=== PATIENT | male | born 1975 | race Caucasian/White ===

== ENCOUNTER 2017-08-24 10:16 | Emergency (ER) | payer BC ==
[~2017-08-24] VITALS: Ht 185.4 cm; Wt 108.9 kg
[~2017-08-24 10:16] MED LIST: BYSTOLIC10 MG PO; DEPO-TESTO100 MG/1 M IM; METFORMIN HCL500 MG PO; PRILOSEC20 MG PO; VITAMIN D5000 UNIT PO
[2017-08-24] MEDS ORDERED: METOPROLOL SUCC50 MG PO (10:52)
[2017-08-24] MEDS ORDERED: TAMSULOSIN HCL0.4 MG PO (10:52)
[2017-08-24] MEDS ORDERED: PANTOPRAZOLE SO40 MG PO (10:52)
[2017-08-24] MEDS ORDERED: KETOROLAC TROME10 MG PO (10:53)
[2017-08-24] MEDS ORDERED: ZOFRAN4 MG PO (13:56)
[2017-08-24] MEDS ORDERED: OXYCODONE HCL5 MG PO (13:56)
== END 2017-08-24 15:09 | disposition home or self-care (01) ==
LOC: ED 10:16
DX: N13.2 Hydronephrosis with renal and ureteral calculous obstruction (principal); I10 Essential (primary) hypertension; E11.9 Type 2 diabetes mellitus without complications; Z88.0 Allergy status to penicillin; Z88.2 Allergy status to sulfonamides; Z88.1 Allergy status to other antibiotic agents; Z79.84 Long term (current) use of oral hypoglycemic drugs; Z79.899 Other long term (current) drug therapy; Z87.442 Personal history of urinary calculi
CPT/HCPCS: 74176; 80053; 81001; 83690; 85025; 96361; 96374; 96375; 96376; 99284; J1170; J1885; J2405; J7030

== ENCOUNTER 2020-02-24 06:59 | Day surgery (SDC) | payer BC ==
[~2020-02-24] VITALS: Ht 185.4 cm; Wt 119.8 kg
[~2020-02-24 06:59] MED LIST changes: +KETOROLAC TROME10 MG PO; +METOPROLOL SUCC50 MG PO; +OMEPRAZOLE20 MG PO; +OXYCODONE HCL5 MG PO; +PANTOPRAZOLE SO40 MG PO; +TAMSULOSIN HCL0.4 MG PO; +WELLBUTRIN SR100 MG; +ZOFRAN4 MG PO
--- NOTE | 2020-02-24 08:17 | NUR ---
02/24/20 0817 Becky Roa 0808- PT TO PACU IN LL POSITIONS. AWAKENS TO VOICE, FOLLOWS COMMANDS AND QUICKLY FALLS BACK TO SLEEP. PT ENCOURAGED TO TAKE DEEP BREATHS AND PASS GAS. SP02 >95% ON 3 L O2 VIA NC. ETCO2 45 0816- PT PASSING GAS. BREATHING EASY AND UNLABORED SPO2 >95% ON 3 L O2 VIA NC. DENIES PAIN AND NAUSEA.
--- NOTE | 2020-02-25 08:56 | OR ---
[facility] [address] [place], [place] [address] Signed DATE OF OPERATION: 02/24/2020 SURGEON: Lexi Newby MD PREOPERATIVE DIAGNOSES: 1. Personal history of colonic polyps, age 38. 2. Internal hemorrhoids. 3. Father with colonic polyps in his 50s. 4. Paternal aunt with colonic polyps in her 50s. POSTOPERATIVE DIAGNOSES: 1. A 5 mm polyp at 50 cm. 2. A 3 mm polypoid lesion at 35 cm. 3. A 3 mm polypoid lesion at 15 cm. 4. Minimal internal hemorrhoids with associated skin tags. PROCEDURE: Colonoscopy with hot biopsy. ESTIMATED BLOOD LOSS: None. INDICATIONS: Jefe is a 44-year-old gentleman who presents for a followup colonoscopy. At age 38, he came for both upper and lower endoscopy in 2013. We found at that time he had a 5 mm polyp in his right colon and 10 mm pedunculated polyp at 25 cm. He is known to have small internal hemorrhoids as well. His father and paternal aunt both had colonic polyps removed in the early 50s. In the meantime, he said he is doing well. He has no lower GI complaints. I gave him a pamphlet on colonoscopy and we reviewed the nature of the test along with the risks including, but not limited to gas bloating, crampy abdominal pain, bleeding, perforation requiring surgery, and missed diagnosis. We also discussed the need for IV conscious sedation. He had expressed understanding and wished to proceed. DESCRIPTION OF PROCEDURE: Jefe was taken into our endoscopy suite and placed in the left lateral decubitus position. He was given IV sedation with 7 mg of Versed and 125 mcg of fentanyl. A digital rectal exam was performed. He is starting to get some induration and enlargement of the prostate. The adult colonoscope was introduced and advanced all around into the cecum under direct visualization of camera without difficulty. His prep Electronically Signed By: LEXI NEWBY MD 02/25/20 0856 PATIENT NAME: JEFE BONILLA OPERATIVE REPORT DATE OF : 71 REPORT #: [id number] PHYSICIAN: LEXI NEWBY MD PCP: KRYSTLE KIMBALL PA-C REPORT IS CONFIDENTIAL AND NOT TO BE RELEASED WITHOUT AUTHORIZATION [facility] [address] [place] [id number] Signed was quite excellent. We could easily see the appendiceal orifice and the ileocecal valve. His prep was quite good. The scope was slowly withdrawn. The above-mentioned polyps were easily removed with the help of hot biopsy forceps. Upon retroflexion of scope once again, he has very small internal hemorrhoid columns with several tiny internal anal skin tags. After this, the gas was suctioned out and the colonoscope removed. Jefe tolerated the procedure quite well. RECOMMENDATIONS: I will see Jefe back in my office in 7 to 14 days to review his results. I suspect he will stay on the 5-year rotation. Lexi Newby MD ALB/RAMOL /[id number] cc: EMBER Dailey MD Copies: KRYSTLE KIMBALL PA-C, ANDREW L MD ~ Electronically Signed By: LEXI NEWBY MD 02/25/20 0856 PATIENT NAME: JEFE BONILLA JESSICA OPERATIVE REPORT DATE OF : 71 REPORT #: [id number] PHYSICIAN: LEXI NEWBY MD PCP: KRYSTLE KIMBALL PA-C REPORT IS CONFIDENTIAL AND NOT TO BE RELEASED WITHOUT AUTHORIZATION
--- NOTE | 2020-02-25 18:21 | PATH ---
[facility] [address] [facility], [place] [address] Signed SPECIMEN(S): A COLON POLYP AT 50 CM SPECIMEN(S): B COLON POLYP AT 35 CM SPECIMEN(S): C COLON POLYP AT 15 CM SPECIMEN SOURCE: A. COLON POLYP AT 50 CM B. COLON POLYP AT 35 CM C. COLON POLYP AT 15 CM CLINICAL HISTORY: Colonoscopy. History of polyps, family history of polyps, colon polyps, internal hemorrhoids. MICROSCOPIC DESCRIPTION: Histologic sections of all submitted blocks are examined by light microscopy. These findings, together with the gross examination, support the pathologic diagnosis. FINAL PATHOLOGIC DIAGNOSIS: A. Colon, polyp at 50 cm, polypectomy: - Tubular adenoma. - Negative for high-grade dysplasia or malignancy. B. Colon, polyp at 35 cm, polypectomy: - Severely cauterized colonic mucosa. - Negative for high-grade dysplasia or malignancy. C. Colon, polyp at 15 cm, polypectomy: - Hyperplastic polyp. - Negative for dysplasia or malignancy. COMMENT: Regarding specimen C: Severe cautery artifact is present, precluding definitive evaluation for low-grade dysplasia. If clinically indicated, a repeat biopsy with mindfulness to cautery artifact may be helpful for further evaluation. Correlation with endoscopic findings is recommended. NAL:[facility]:C2NR GROSS DESCRIPTION: Three specimens are received in three containers, labeled "SB." A. The specimen, labeled "SB, 1," and designated on the requisition "colon polyp at 50 cm," is received in formalin and consists of four rodriguez soft tissue fragments that measure 0.3 cm in greatest PATIENT NAME: ANNETTE BONILLA PATHOLOGY DATE OF : 71 REPORT #: [id number] PHYSICIAN: CHRIS PARKER PCP: KRYSTLE KIMBALL PA-C REPORT IS CONFIDENTIAL AND NOT TO BE RELEASED WITHOUT AUTHORIZATION [facility] [address] [place] [address] Signed dimension. The specimen is entirely submitted in cassette (A1). B. The specimen, labeled "SB, 2," and designated on the requisition "colon polyp at 35 cm," is received in formalin and consists of two rodriguez soft tissue fragments that measure 0.3 cm in greatest dimension. The specimen is entirely submitted in cassette (B1). Note: Smaller fragment is minute and may not survive processing. C. The specimen, labeled "SB, 3," and designated on the requisition "colon polyp at 15 cm," is received in formalin and consists of one rodriguez soft tissue fragment that measures 0.3 cm in greatest dimension. The specimen is entirely submitted in cassette (C1). AT (under the direct supervision of a pathologist) The Gross Description was prepared using a voice recognition system. The report was reviewed for accuracy; however, sound-alike word errors, addition and/or deletions may occur. If there is any question about this report, please contact Client Services. PERFORMING LABORATORY: The technical component was performed by [facility] [address] (Senior Systems Administrator: Yuliya Pete MD; CLIA# [id number]). [facility] [place] [address] [address] (CLIA# [id number]). Diagnostician: Minna Pace MD Pathologist Electronically Signed 02/25/2020 Copies: ~ PATIENT NAME: ANNETTE BONILLA PATHOLOGY DATE OF : 71 REPORT #: [id number] PHYSICIAN: CHRIS PATHOLOGY PCP: KRYSTLE KIMBALL PA-C REPORT IS CONFIDENTIAL AND NOT TO BE RELEASED WITHOUT AUTHORIZATION
== END 2020-02-24 09:47 | disposition home or self-care (01) ==
LOC: DS 06:59 → OPS 06:59 → DS 08:15 → OPS 09:47
PROVIDERS: Colon & Rectal Surgery
PROC: 0DBE8ZZ Excision of Large Intestine, Via Natural or Artificial Opening Endoscopic (ICD-10-PCS; principal; 2020-02-24 08:15)
DX: Z12.11 Encounter for screening for malignant neoplasm of colon (principal); D12.6 Benign neoplasm of colon, unspecified; K64.4 Residual hemorrhoidal skin tags; K64.8 Other hemorrhoids; Z86.010 Personal history of colon polyps; Z83.71 Family history of colonic polyps; Z79.899 Other long term (current) drug therapy
CPT/HCPCS: 99153; G0500; J2250; J3010; J7121